=== PATIENT | male | born 1965 | race Caucasian/White ===

== ENCOUNTER 2017-06-03 14:30 | Emergency (ER) | payer OTHER ==
[~2017-06-03] VITALS: Ht 170.2 cm; Wt 97.2 kg
[2017-06-03 17:11] VITALS: BP 125/74
== END 2017-06-03 17:35 | disposition home or self-care (01) ==
LOC: EME 14:30
DX: R09.89 Other specified symptoms and signs involving the circulatory and respiratory systems (principal); R13.10 Dysphagia, unspecified
CPT/HCPCS: 70360; 99281; 99284